=== PATIENT | female | born 1990 | race Caucasian/White ===

== ENCOUNTER 2017-02-16 13:34 | Inpatient (IN) | payer OTHER ==
[2017-02-16] VITALS (9 sets, daily range): BP systolic 117–141; BP diastolic 53–89
[~2017-02-16] VITALS: Ht 170.2 cm; Wt 104.0 kg
[~2017-02-16 13:34] MED LIST: ENDOCET 5-3251 EACH PO; IBUPROFEN800 MG PO; Motrin PO; PRENATAL TABLE1 EAC3 PO; Percocet 5/325,Endoc PO
[2017-02-16 15:00] LABS: BASOPHIL COUNT 0.1 K/uL (0-0.1); EOSINOPHIL (%) 0.7 % (0-5); EOSINOPHIL COUNT 0.1 K/uL (0-0.3); HEMATOCRIT 34.4 % (36.0-46.0); IMMATURE GRANULOCYTE (%) 0.9 % (0.0-0.7); IMMATURE GRANULOCYTE COUNT 0.1 K/uL; INSTRUMENT ABS NEUTROPHIL CT 7.6 K/uL; LYMPHOCYTE COUNT 2.1 K/uL (1.0-2.8); MCHC 34.6 G/DL (30.0-36.0); MCV 89.6 FL (83-99); MEAN PLAT.VOLUME 11.6 uM^3 (9.5-12.4); MONOCYTE (%) 8.2 % (3-12); MONOCYTE COUNT 0.9 K/uL (0-0.8); NEUTROPHIL (%) 70.5 % (45-76); NEUTROPHIL COUNT 7.6 K/uL (1.8-6.4); PLATELET COUNT 200 K/uL (156-360); RED BLOOD COUNT 3.84 M/uL (3.80-5.20); WHITE BLOOD COUNT 10.7 K/uL (4.1-10.2)
[2017-02-17] VITALS (11 sets, daily range): BP systolic 110–139; BP diastolic 55–78
[2017-02-17] MEDS ORDERED: MOTRIN800 MG PO (03:39)
[2017-02-18 08:11] VITALS: BP 131/73
== END 2017-02-18 15:06 | disposition home or self-care (01) | DRG 775 ==
LOC: LDRP-OP 13:34 → 2WEST 13:35 → LDRP-OP 03-17 09:41
PROVIDERS: Midwife
PROC: 4A1H74Z Monitoring of Products of Conception, Cardiac Electrical Activity, Via Natural or Artificial Opening (ICD-10-PCS; principal; 2017-02-16)
PROC: 10E0XZZ Delivery of Products of Conception, External Approach (ICD-10-PCS; 2017-02-17)
DX: O34.211 Maternal care for low transverse scar from previous cesarean delivery (principal); O42.02 Full-term premature rupture of membranes, onset of labor within 24 hours of rupture; O63.0 Prolonged first stage (of labor); O69.81X0 Labor and delivery complicated by cord around neck, without compression, not applicable or unspecified; O99.214 Obesity complicating childbirth; E66.9 Obesity, unspecified; Z68.30 Body mass index [BMI] 30.0-30.9, adult; Z37.0 Single live birth; Z3A.40 40 weeks gestation of pregnancy
CPT/HCPCS: 85025; 86900; 86901; G0378; J7120